=== PATIENT | male | born 1980 | race Caucasian/White ===

== ENCOUNTER 2023-12-04 22:11 | Emergency (ER) | payer OTHER ==
[~2023-12-04] VITALS: Ht 162.6 cm; Wt 74.8 kg
[2023-12-04 22:26] VITALS: BP_SYST 133; PULSE 101; RESP 17; TEMP 98.2; O2SAT 96
[2023-12-04] MEDS ORDERED: AUG875 PO (23:32)
[2023-12-04] MEDS ORDERED: DOXY100C5 PO (23:32)
[2023-12-04] MEDS: AMOXICILLIN/POTASSIUM CLAV 875 MG TABLET PO ONE (23:46)
[2023-12-04] MEDS: LIDOCAINE/EPI 1% 1:100000 20 ML VIAL INJ ONE (23:46)
[2023-12-04] MEDS: DEXAMETHASONE SOD PHOSPHATE 10 MG/ML VIAL PO ONE (23:46)
[2023-12-04 23:50] VITALS: BP_SYST 133; PULSE 101; RESP 17; TEMP 98.2; O2SAT 96
== END 2023-12-04 23:50 | disposition home or self-care (01) ==
LOC: SED 22:11
DX: L03.211 Cellulitis of face (principal)
CPT/HCPCS: 99284; 10160; J1100; 96372; 99283